=== PATIENT | female | born 1985 | race African-American/Black ===

== ENCOUNTER 2018-02-04 10:11 | Emergency (ER) | payer MEDICAID ==
[~2018-02-04] VITALS: Ht 162.6 cm; Wt 56.0 kg
[2018-02-04] MEDS ORDERED: SODIUM CHLORIDE 0.9% 1,000 ML IV ONE (11:16)
[2018-02-04] MEDS ORDERED: ONDANSETRON HCL 4MG/2ML INJ IV STA (11:16)
[2018-02-04 11:49] LABS: BASOPHILS % 0.5 % (0.0-2.0); EOSINOPHILS % 0.2 % (0.0-5.0); HEMATOCRIT. 48.4 % (36.0-48.0); HEMOGLOBIN. 16.3 g/dL (12.0-16.0); LYMPHOCYTES % 13.9 % (20.0-50.0); MEAN CORPUSCULAR HEMOGLOBIN 31.1 pg (28.0-32.0); MEAN CORPUSCULAR VOLUME 92.5 fL (81.0-99.0); MEAN PLATELET VOLUME 8.9 fl (7.4-10.4); NEUTROPHILS % 79.4 % (40.0-76.0); PLATELET 160 x1000/uL (130-400); RED BLOOD CELL COUNT 5.23 mill/uL (4.2-5.4); RED CELL DISTRIBUTION WIDTH 13.4 % (11.6-14.6)
[2018-02-04 11:53] LABS: CHLORIDE 103 mEq/L (98-107)
[2018-02-04 13:22] VITALS: BP 105/66
[2018-02-04] MEDS ORDERED: METOCLOPRAMIDE HCL 10MG/2ML VIAL IV ONE (13:30)
== END 2018-02-04 14:17 | disposition home or self-care (01) ==
LOC: ER 13:54
DX: E86.0 Dehydration (principal); R11.2 Nausea with vomiting, unspecified; R19.7 Diarrhea, unspecified; F17.200 Nicotine dependence, unspecified, uncomplicated; Z98.890 Other specified postprocedural states
CPT/HCPCS: 36415; 80053; 81025; 85025; 96361; 96374; 96375; 99284; J2405; J2765; J7030

== ENCOUNTER 2018-07-16 14:17 | Emergency (ER) | payer MEDICAID ==
[~2018-07-16] VITALS: Ht 170.2 cm; Wt 54.0 kg
[2018-07-16 14:27] VITALS: BP 107/66
== END 2018-07-16 17:40 | disposition home or self-care (01) ==
LOC: ER 14:17
DX: R05 Cough (principal); R06.2 Wheezing; F17.210 Nicotine dependence, cigarettes, uncomplicated; Z71.6 Tobacco abuse counseling; Z98.890 Other specified postprocedural states
CPT/HCPCS: 71045; 81025; 99283; 99406

== ENCOUNTER 2022-08-06 10:14 | Emergency (ER) | payer MEDICAID ==
[~2022-08-06] VITALS: Ht 162.6 cm; Wt 61.0 kg
[2022-08-06] MEDS ORDERED: SODIUM CHLORIDE 0.9% 1,000 ML IV ONE (10:30)
[2022-08-06] MEDS ORDERED: FAMOTIDINE 20MG/2ML VIAL IV ONE (10:30)
[2022-08-06] MEDS ORDERED: ONDANSETRON HCL 4MG/2ML INJ IV ONE (10:30)
[2022-08-06 10:43] LABS: HEMATOCRIT. 42.5 % (36.0-48.0); HEMOGLOBIN. 14.7 g/dL (12.0-16.0); MEAN CORPUSCULAR HEMOGLOBIN 31.2 pg (28.0-32.0); MEAN CORPUSCULAR VOLUME 90.3 fL (81.0-99.0); RED BLOOD CELL COUNT 4.71 mill/uL (4.2-5.4); RED CELL DISTRIBUTION WIDTH 13.9 % (11.6-14.6)
[2022-08-06] MEDS ORDERED: DIPHENHYDRAMINE 50MG/ML VIAL IV ONE (10:45)
[2022-08-06 10:51] LABS: CHLORIDE 108 mEq/L (98-107)
[2022-08-06 11:06] LABS: HCG SCREEN NEGATIVE
[2022-08-06 11:23] LABS: PLATELET ESTIMATE NORMAL
[2022-08-06 11:28] LABS: CLARITY URINE CLEAR (CLEAR); COLOR URINE YELLOW (YELLOW); KETONES URINE 4+ (NEGATIVE); LEUKOCYTE ESTERASE URINE NEGATIVE (NEGATIVE); NITRITE URINE NEGATIVE (NEGATIVE); OCCULT BLOOD URINE 3+ (NEGATIVE); PH URINE 5.5 (4.5-8.0); PROTEIN URINE 1+ (NEGATIVE); SPECIFIC GRAVITY URINE 1.031 (1.005-1.030)
[2022-08-06] MEDS ORDERED: KETOROLAC 30MG/ML VIAL IV ONE (11:45)
[2022-08-06] MEDS ORDERED: METOCLOPRAMIDE HCL 10MG/2ML VIAL IV ONE (12:15)
[2022-08-06] MEDS ORDERED: IOHEXOL-300 100 ML BOTTLE ONE (12:52)
[2022-08-06] MEDS ORDERED: METOCLOPRAMIDE HCL 10 MG in SODIUM CHLORIDE 0.9% 50 ML IV NR (13:00)
[2022-08-06] MEDS ORDERED: HALOPERIDOL LACTATE 5MG/ML VIAL IM NR (13:00)
[2022-08-06] MEDS ORDERED: DICYCLOMINE HCL 10MG CAPSULE PO ONE (14:45)
[2022-08-06] MEDS ORDERED: MAGNESIUM/ALUMINUM HYDROXIDE/SIMETHICONE 30ML UDC PO ONE (14:45)
[2022-08-06] MEDS ORDERED: HALOPERIDOL LACTATE 5MG/ML VIAL IM ONE (14:45)
[2022-08-06] MEDS ORDERED: ONDA4TAB11 PO (15:07)
[2022-08-06 15:36] VITALS: BP 113/62
== END 2022-08-06 15:37 | disposition home or self-care (01) ==
LOC: ER 10:16
DX: R10.9 Unspecified abdominal pain (principal); R11.2 Nausea with vomiting, unspecified; Z98.890 Other specified postprocedural states
CPT/HCPCS: 36415; 74177; 80053; 80320; 81003; 81025; 83690; 84703; 85025; 93005; 96361; 96365; 96372; 96375; 99285; J1200; J1630; J1885; J2405; J2765; J3490; J7030; Q9967; Z7610; G0480